=== PATIENT | male | born 1985 ===

== ENCOUNTER 2018-09-17 06:22 | Emergency (ER) | payer OTHER ==
[2018-09-17 06:34] VITALS: BP 113/76; PULSE 75; RESP 18; TEMP 98.2; O2SAT 100
[2018-09-17] MEDS ORDERED: Sodium Chloride 0.9% 1,000 ML IV STA (07:25)
--- NOTE | 2018-09-17 07:31 | ED PDOC ---
HPI: Influenza Time Seen by Provider: 09/17/18 07:06 Chief Complaint: Flu-like Symptoms Chief Complaint (Provider): Flu-like Symptoms History Per: Patient Exam Limitations: language barrier ([place] ID# [id number]) Onset/Duration Of Symptoms: Days (x3) Additional complaint(s):: Patient is a 32 y/o male with no significant PMHx who presents to the ED for evaluation of generalized body pain for the past three days. Patient complains of back pain, weakness, and "pain in bones." Patient also admits to chills but has not taken temperature. Patient denies nausea and vomiting. Patient states he took Tylenol twice for pain but with no improvement of symptoms. Of note, patient [place] in a half-way and cannot recall any recent sick contacts. PCP: None Provided Past Medical History Reviewed: Historical Data, Nursing Documentation, Vital Signs Vital Signs: Last Vital Signs Temp 98.2 F 09/17/18 06:31 Pulse 75 09/17/18 06:31 Resp 18 09/17/18 06:31 BP 113/76 09/17/18 06:31 Pulse Ox 100 09/17/18 06:31 - Medical History PMH: No Chronic Diseases - Surgical History Surgical History: No Surg Hx - Family History Family History: States: No Known Family Hx - Living Arrangements Living Arrangements: Other (Skilled Nursing) - Allergies Allergies/Adverse Reactions: Allergies Allergy/AdvReac Type Severity Reaction Status Date / Time No Known Allergies Allergy Verified 09/17/18 07:00 Review of Systems ROS Statement: Except As Marked, All Systems Reviewed And Found Negative Constitutional: Positive for: Chills, Other (generalized body pain and decreased appetite) Gastrointestinal: Negative for: Nausea, Vomiting Musculoskeletal: Positive for: Back Pain, Other ("pain in bones") Neurological: Positive for: Weakness Physical Exam - Reviewed Nursing Documentation Reviewed: Yes Vital Signs Reviewed: Yes - Physical Exam Appears: Positive for: No Acute Distress (tired) Head Exam: Positive for: ATRAUMATIC, NORMAL INSPECTION, NORMOCEPHALIC Skin: Positive for: Normal Color, Warm, Dry Eye Exam: Positive for: Normal appearance, EOMI, PERRL ENT: Positive for: Normal ENT Inspection Neck: Positive for: Normal, Painless ROM, Supple Cardiovascular/Chest: Positive for: Regular Rate, Rhythm. Negative for: Murmur Respiratory: Positive for: Normal Breath Sounds. Negative for: Respiratory Distress Gastrointestinal/Abdominal: Positive for: Normal Exam, Soft. Negative for: Tenderness Back: Positive for: Normal Inspection. Negative for: L CVA Tenderness, R CVA Tenderness, Vertebral Tenderness Extremity: Positive for: Normal ROM. Negative for: Pedal Edema, Deformity Neurologic/Psych: Positive for: Alert, Oriented. Negative for: Motor/Sensory Deficits Medical Decision Making Medical Decision Making: Time: 725 Impression: Viral Illness Plan: - Patient out of window for Tamiflu. BMP CBC IV Fluids Toradol 30 mg IVP Reassess Patient Time: 839 Patient has normal labs. To followup with outpatient clinic. Patient advised to rest and increase hydration. Diagnosis of viral syndrome. --------- Scribe Attestation: Documented by Tk Ferrell, acting as a scribe for Fidelina Estrada MD. Provider Scribe Attestation: All medical record entries made by the Scribe were at my direction and personally dictated by me. I have reviewed the chart and agree that the record accurately reflects my personal performance of the history, physical exam, medical decision making, and the department course for this patient. I have also personally directed, reviewed, and agree with the discharge instructions and disposition. - Laboratory Results Result Diagrams: 09/17/18 07:44 09/17/18 07:44 - ECG O2 Sat by Pulse Oximetry: 100 (RA) Pulse Ox Interpretation: Normal Disposition - Clinical Impression Clinical Impression: Viral syndrome - Disposition Disposition Time: 08:40 Condition: IMPROVED Additional Instructions: Take Motrin or Tylenol for body aches. Follow up with outpatient clinic in one to two weeks. Increase rest and drink plenty of water while symptoms last. Instructions: Cough, Runny Nose, and the Common Cold (DC), Viral Syndrome (DC) Forms: [facility] (Palauan) Print Language: NEPALI
[2018-09-17 07:57] LABS: BASO % 0.8 % (0.0-2.0); EOS % 1.3 % (0.0-4.0); LYMPH # 1.7 K/uL (1.0-4.3); LYMPH % 43.7 % (20.0-40.0); MEAN CELL VOLUME 85.1 fl (80.0-94.0); MEAN CORPUSCULAR HEMOGLOBIN 27.6 pg (27.0-31.0); MEAN CORPUSCULAR HGB CONC 32.4 g/dL (33.0-37.0); MEAN PLATELET VOLUME 9.5 fl (7.2-11.7); MONO # 0.5 K/uL (0.0-0.8); MONO % 13.6 % (0.0-10.0); NEUT # 1.6 K/uL (1.8-7.0); NEUT % 40.6 % (50.0-75.0); NRBC % 0.5 % (0.0-0.0); RBC 4.72 Mil/uL (4.40-5.90); RED CELL DISTRIBUTION WIDTH 13.3 % (11.5-14.5); WHITE BLOOD COUNT 3.9 K/uL (4.8-10.8)
[2018-09-17 08:12] LABS: BLOOD UREA NITROGEN 11 mg/dl (9-20); CALCIUM 9.2 mg/dL (8.4-10.2); GFR NON-AFRICAN AMERICAN > 60
== END 2018-09-17 08:59 | disposition home or self-care (01) ==
LOC: H.ER 06:22
DX: B34.9 Viral infection, unspecified (principal)
CPT/HCPCS: 80048; 85025; 96361; 96374; 99283; J1885; J7030